=== PATIENT | male | born 1990 | race Caucasian/White ===

== ENCOUNTER 2017-05-05 07:05 | Emergency (ER) | payer OTHER ==
[2017-05-05 07:14] VITALS: PULSE 69; TEMP 98; BMI 27.1
--- NOTE | 2017-05-05 07:44 | PDOC ---
History of Present Illness - General Chief Complaint: Injury Stated Complaint: LT LEG INJURY (WORK) Time Seen by Provider: 05/05/17 07:20 - History of Present Illness Initial Comments: 05/05/17 07:38 Patient is a 26 year old male with no significant past medical history who presents with a left lower leg injury. Patient reports a ping pong table falling of a truck at work and sliding on his left luke prompting his visit to the ED today. He reports that he can walk on the leg and only feels pain around the abrasion. He denies any loss of consciousness or other injuries. Patient does not know when his last tetanus was. Past History - Past Medical History Allergies/Adverse Reactions: Allergies Allergy/AdvReac Type Severity Reaction Status Date / Time No Known Allergies Allergy Verified 05/05/17 07:17 Home Medications: Ambulatory Orders NK [No Known Home Medication] 05/05/17 - Psycho/Social/Smoking Cessation Hx Suicidal Ideation: No Smoking History: Never smoked Information on smoking cessation initiated: No Review of Systems - Review of Systems Constitutional: No: Chills, Fever Respiratory: No: Cough, Shortness of Breath Cardiac (ROS): No: Chest Pain, Palpitations ABD/GI: No: Constipated, Diarrhea, Nausea, Vomiting : No: Dysuria Neurological: No: Headache, Paresthesia, Tingling, Weakness *Physical Exam - Vital Signs Last Vital Signs Temp Pulse Resp BP Pulse Ox 98 F 69 18 131/74 99 05/05/17 07:11 05/05/17 07:11 05/05/17 07:11 05/05/17 07:11 05/05/17 07:11 - Physical Exam Comments: 05/05/17 07:45 General Appearance: Nourished. No Apparent Distress Respiratory/Chest: Lungs Clear, Normal Breath Sounds. No Crackles, Rales, Rhonchi, Wheezing Cardiovascular: Regular Rhythm, Regular Rate. No Murmur, Gallop/S3, Gallop/S4 Gastrointestinal/Abdominal: Normal Bowel Sounds, Soft. No Guarding, Rebound, Tenderness Extremity: Normal capillary refill on all four extermities. Superficial abrasion on the anterior left leg between the knee and ankle. No bony deformities. No tenderness to palpation of bony structures. Normal range of motion in the left knee and left ankle. Weight bearing Integumentary: Normal Color, Dry, Warm Neurologic: Fully Oriented, Alert, Normal Mood/Affect, Normal Response, No sensory deficits to light touch or temperature in the distal bilateral extremities Medical Decision Making - Medical Decision Making 05/05/17 07:58 Patient is a 26 year old male with no PMH who present following an injury to his left leg. Given the patient's physical exam, we don't feel it is necessary to image the patient's leg at this time. The patient only has a superficial abrasion and does not require suturing either. We will administer a tetanus booster and dress the wound with Bactrian and non-adherent gauze and discharge the patient with wound care instructions. We discussed the plan with the patient and he is agreeable to the plan. *DC/Admit/Observation/Transfer Diagnosis at time of Disposition: Abrasion of lower extremity without infection - Discharge Dispostion Disposition: HOME Condition at time of disposition: Improved - Referrals Referrals: Alexandru Jeter MD [Primary Care Provider] - - Patient Instructions Printed Discharge Instructions: DI for Abrasion Additional Instructions: Please return to the ER if you experience concerning or worsening symptoms. Please follow up with your primary care provider to discuss your ER visit. - Post Discharge Activity Work/School Note: Back to Work - Attestations Physician Attestion: 05/05/17 08:14 I, Dr. Matias Vazquez, attest that this document has been prepared under my direction and personally reviewed by me in its entirety. I further attest, that it accurately reflects all work, treatment, procedures and medical decision -making performed by me.
[2017-05-05] MEDS ORDERED: DIPHTH,PERTUSS(ACELL),TET 0.5 ML DISP.SYRIN IM ONE (07:50)
--- NOTE | 2017-05-05 07:57 | PDOC ---
Attending Attestation - Resident Resident Name: Matias Vazquez - ED Attending Attestation I have performed the following: I have examined & evaluated the patient, The case was reviewed & discussed with the resident, I agree w/resident's findings & plan, Exceptions are as noted - HPI HPI: 05/05/17 07:51 healthy 26y/o M p/w abrasion to L luke after box slid down his leg. No ambulatory issues, no motor/sensory deficits. unknown last tetanus. - Physicial Exam PE: 05/05/17 07:52 VSS L Leg: linear abrasion along L luke, superficial without foreign body or deep tissue exposure. no laceration/hematoma. no bony ttp/deformity. FROM all joints without effusion. no other injuries - Medical Decision Making 05/05/17 07:53 Patient seen and evaluated with the resident. I agree with the overall evaluation, assessment, and management with the following summary of visit: 26y/o M superficial abrasion to L luke, no evidence of bone injury, nvi. wound care: irrigation, tetanus update, bacitracin bandage no indication for imaging understand return criteria
[2017-05-05 08:42] VITALS: BP 132/74
== END 2017-05-05 08:41 | disposition home or self-care (01) ==
LOC: JER 07:05
PROC: 3E0234Z Introduction of Serum, Toxoid and Vaccine into Muscle, Percutaneous Approach (ICD-10-PCS; principal; 2017-05-05)
DX: S80.812A Abrasion, left lower leg, initial encounter (principal); V04.00XA Pedestrian on foot injured in collision with heavy transport vehicle or bus in nontraffic accident, initial encounter; Y92.488 Other paved roadways as the place of occurrence of the external cause; Y93.89 Activity, other specified; Y99.0 Civilian activity done for income or pay
CPT/HCPCS: 90715; 99282-25